=== PATIENT | male | born 1970 | race Asian ===

== ENCOUNTER 2017-06-16 21:13 | Emergency (ER) | payer BC, OTHER ==
[~2017-06-16] VITALS: Ht 167.6 cm; Wt 65.9 kg
[~2017-06-16 21:13] MED LIST: ATOR40TA68 PO
[2017-06-16 21:25] VITALS: Ht 167.6 cm; Wt 65.9 kg
[2017-06-16 21:52] LABS: URINE BLOOD (Dip) POC Negative (NEGATIVE)
--- NOTE | 2017-06-16 22:43 | RADRPT ---
PROCEDURE: CT abdomen and pelvis without contrast. CLINICAL INDICATION: Left flank pain. TECHNIQUE: CT scan of the abdomen and pelvis without contrast was performed and is reconstructed a t 2.5 mm contiguous axial intervals from the dome of the diaphragm to the inferior pubic rami.. The patient was scanned without intravenous contrast. Sagittal and coronal reformatted images were obt ained from the axial source images. The calculated radiation dose measures 380 mGy centimeters. The CTDI measures 7.5 mGy. Individualized dose optimization technique was used for the performance of this exam. This included 1. Automated exposure control. 2. Adjustment of the mA and / or kV according to the patient's size. 3. Use of iterative reconstructed technique. COMPARISON: CT abdomen pelvis October 05, 2009 FINDINGS: The lung bases are clear of any infiltrate or nodule. No effusion is seen. Calcified granulomas see n in the lingula. The liver is of normal size, contour and attenuation with no mass or ductal dilatation. No gallston es are visualized. No splenic, adrenal or pancreatic abnormalities present. High There is no aneurysm. No adenopathy is present. No bowel mass or obstruction is present. The appendix is normal. No phlegmon, ascites or pneumop eritoneum is visualized. The osseous structures are intact. IMPRESSION: No evidence of urolithiasis, obstructive uropathy, diverticulitis or appendicitis. .Mike Evans MD, Date Time Electronically viewed and signed by .Mike Evans MD, MD on 06/16/2017 22:43 .A/
[2017-06-16] MEDS ORDERED: IBUP-1542 PO (22:46)
--- NOTE | 2017-06-16 22:56 | ERD ---
ER Documentation Chief Complaint Date/Time DATE: 06/16/17 TIME: 22:48 Chief Complaint left sided under rib pain x2 days worse/constant sharp pain today HPI This 47-year-old male complains of intermittent sharp left abdominal pain for last 2 days. He denies hematuria, fevers, vomiting, right-sided abdominal pain , chest pain or shortness of breath. Pain does not worsen with movement or deep breathing. ROS All systems reviewed and are negative except as per history of present illness. Medications Home Meds Active Scripts Ibuprofen* (Motrin*) 600 Mg Tab, 600 MG PO Q6, #15 TAB Prov:SARAH ZARATE MD 06/16/17 Reported Medications Atorvastatin* (Atorvastatin*) 40 Mg Tablet, 1 TAB PO DAILY 09/22/13 Allergies Allergies: Coded Allergies: No Known Allergies (Verified Allergy, Mild, 09/22/13) PMhx/Soc History of Surgery: No Anesthesia Reaction: No Hx Neurological Disorder: No Hx Respiratory Disorders: No Hx Cardiac Disorders: Yes (LIPITOR FOR HIGH CHOLESTEROL) Hx Psychiatric Problems: No Hx Miscellaneous Medical Probl: Yes (high cholesterol) Hx Alcohol Use: No Hx Substance Use: No Hx Tobacco Use: No Smoking Status: Never smoker Physical Exam Vitals Vital Signs Date Time Temp Pulse Resp B/P Pulse Ox O2 Delivery O2 Flow Rate FiO2 06/16/17 21:25 97.5 70 12 132/102 100 Physical Exam Const: [], [id number]. Head: Atraumatic Eyes: Normal Conjunctiva ENT: Normal External Ears, Nose and Mouth. Neck: Full range of motion..~ No meningismus. Resp: Clear to auscultation bilaterally Cardio: Regular rate and rhythm, no murmurs Abd: Soft, tender mildly in the left midabdomen. No rebound. No tenderness at McBurney's point no Thompson sign no rebound. , non distended. Normal bowel sounds Skin: No petechiae or rashes Back: No midline or flank tenderness Ext: No cyanosis, or edema Neur: Awake and alert Psych: Normal Mood and Affect Results 24 hrs Laboratory Tests Test 06/16/17 22:00 Bedside Urine pH (LAB) 5.5 Bedside Urine Protein (LAB) Negative Bedside Urine Glucose (UA) Negative Bedside Urine Ketones (LAB) Negative Bedside Urine Blood Negative Bedside Urine Nitrite (LAB) Negative Bedside Urine Leukocyte Esterase (L Negative Procedures/MDM Is negative. Given the uncertain cause of pain CT abdomen pelvis was performed which showed no acute abnormalities going to the. Patient was stable amatory throughout the ED course. Further evaluation deferred given absence of fevers, vomiting, blood normal appearance to the patient. Patient presents with left- sided abdominal pain of uncertain etiology. There is no evidence of appendicitis, renal stones, signs to suggest appendicitis, obstruction, pneumonia, acute coronary syndrome, additional emergent causes of presenting complaints. He will be treated with ibuprofen, primary care follow-up and return precautions. Departure Diagnosis: Primary Impression: Abdominal pain Abdominal location: left lower quadrant Qualified Code: R10.32 - Left lower quadrant pain Condition: Stable Patient Instructions: Abdominal Pain Additional Instructions: Patient's normal today. Recheck for fevers, vomiting, blood, new or worsening symptoms. SARAH ZARATE MD Jun 16, 2017 22:56
== END 2017-06-16 22:50 | disposition home or self-care (01) ==
LOC: E/R 21:13 → FTE 22:50
DX: R10.32 Left lower quadrant pain (principal)
CPT/HCPCS: 74176; 81003

== ENCOUNTER 2018-04-13 11:33 | Emergency (ER) | END 2018-04-13 12:49 | disposition home or self-care (01) ==